=== PATIENT | female | born 1950 | race Caucasian/White ===

== ENCOUNTER → 2018-12-06 | Outpatient (CLI) | payer OTHER, MEDICAID ==
[2018-12-06] VITALS (8 sets, daily range): BP systolic 134–172; BP diastolic 75–95
[~2018-12-06] VITALS: Ht 165.1 cm; Wt 107.2 kg
[~2018-12-06] MED LIST: ALBUTEROL2.5 MG/0.5 INH; AMARYL2 MG PO; AMLODIPINE BESY10 MG PO; ATROVENT HFA14 GM INH; BEVESPI AEROS10.7 GM; GABAPENTIN 100100 MG PO; IBUPROFEN 200200 M1 PO; LASIX 40 MG TAB40 M2 PO; LISINOPRIL20 MG PO; NITROGLYCERIN0.4 MG SUBLING; NORCO 10-325 T1 EACH PO; OMEPRAZOLE20 M2 PO; OXYCODONE HCL 55 MG PO; ROSUVASTATIN CA10 MG PO; TOPROL XL25 MG PO
[2018-12-06 08:31] LABS: HEMATOCRIT 43.3 % (37.0-47.0); HEMOGLOBIN 14.8 gm/dL (12.0-15.0); MCHC 34.1 g/dL (28.0-37.0); MCV 90.9 fL (80.0-100.0); MPV 9.3 fl. (7.2-11.1); RBC 4.77 mil/uL (4.20-5.00); RDW-CV 13.4 % (10.5-14.5); WBC 9.8 thou/uL (4.0-11.0)
[2018-12-06 08:41] LABS: APTT 25.9 Seconds (25.0-31.3)
[2018-12-06 08:59] LABS: ANION GAP 7 mmol/L (7-16); BUN 10 mg/dL (7-18); CALCIUM 9.1 mg/dL (8.5-10.1); CHLORIDE 102 mmol/L (98-107); CO2 31 mmol/L (21-32); GLUCOSE 199 mg/dL (70-99); POTASSIUM 3.4 mmol/L (3.5-5.1); SODIUM 140 mmol/L (136-145)
[2018-12-06 09:06] LABS: ALBUMIN 3.3 g/dL (3.4-5.0); ALKALINE PHOSPHATASE 89 U/L (46-116); CHOLESTEROL 130 mg/dL (<200); HDL CHOLESTEROL 30 mg/dL (>40); LDL CHOLESTEROL 54 mg/dL (<100); SGOT 13 U/L (15-37); SGPT 23 U/L (30-65); TC:HDL 4.3 Ratio (Not establshd); TOTAL BILIRUBIN 0.3 mg/dL (<0.1-1.0); TOTAL PROTEIN 7.4 g/dL (6.4-8.2); TRIGLYCERIDE 230 mg/dL (<150); VLDL 46 mg/dL (<40)
[2018-12-06 09:07] LABS: SERUM ASSESSMENT Clear
--- NOTE | 2018-12-06 11:28 | CARD ---
[address] [address] CARDIAC CATH REPORT Name: SAMANTABREAKEYLA ROYAL Room: [facility] Loving#: [id number] Admission: 12/06/18 Attend Phys: Stefan Champagne MD, Discharge: Date of : 52 Report #: [id number] THIS REPORT FOR: //name// APPROVED REPORT Study performed: 12/06/2018 09:12:25 Patient Details Patient Status: Out-Patient Room #: Event Personnel Dr. Stefan Champagne Procedures Performed Left heart catheterization left ventriculography and selective coronary arteriography Indication Chest pain Risk Factors Hypercholesterolemia, Hypertension, Diabetes Procedure Narrative The patient was brought electively to the Cardiac Catheterization Laboratory and was prepped and draped in a sterile manner. The right femoral was infiltrated with 2% Lidocaine subcutaneous anesthesia. A 6 Filipino sheath was inserted into the right femoral artery. Coronary angiography was performed using coronary diagnostic catheters. The right coronary system was accessed and visualized with a Diagnostic catheter. The left coronary system was accessed and visualized with a Diagnostic catheter. The left ventricle was accessed and visualized with a Diagnostic catheter. Left ventricular/Aortic Valve gradient assessed via catheter pullback. Left ventriculogram was performed in PEREZ projection. Pre-demployment femoral angiogram was performed . Closure device was deployed with a 6 Fr Mynx. There was no hematoma. Coronary Angiography The patient's coronary anatomy is right dominant. Diagnostic Cath Left Main 0% narrowing LAD 0% narrowing Circumflex 0% narrowing with mild aneurysmal dilatation of the [facility] [address] [place] [address] CARDIAC CATH REPORT Name: BREA ENGLAND Room: [facility]#: [id number] Admission: 12/06/18 Attend Phys: Stefan Champagne MD, Discharge: Date of : 52 Report #: [id number] midportion of the circumflex Right Coronary Modest sized dominant vessel with 30% proximal narrowing Left Ventriculography The left ventricle is normal in size with normal contractility. The left ventricular ejection fraction is estimated to be 65%. Left ventricular wall motion abnormalities are not present. There is no mitral insufficiency. Hemodynamics The aortic pressure is 130/70 mmHg with a mean of 82 mmHg. The left ventricular end diastolic pressure is 8 mmHg. There was no gradient across the aortic valve upon pullback. 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 Recommendations Cardiac Risk Reduction Program Diagnostic Cath Approved by: Stefan Champagne MD Date/Time: 12/06/2018 11:27:40 <ELECTRONICALLY SIGNED> By: Stefan Champagne MD, [facility] 12/06/18 [id number] Champagne MD, [facility] /INF
--- NOTE | 2018-12-06 12:09 | EKG ---
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1950 Requested By: Stefan Champagne Order Number: [id number] Ma[place] MD: Stefan Champagne Measurements Intervals [place] Rate: 69 P: -77 ME: 106 QRS: 13 QRSD: 107 T: 45 QT: 427 QTc: 458 Interpretive Statements Ectopic atrial rhythm Short ME interval Abnormal R-wave progression, early transition Abnormal inferior Q waves Borderline T abnormalities, anterior leads No previous ECG available for comparison Electronically Signed On 12-06-2018 12:09:38 CDT by Stefan Champagne [email or web address] <ELECTRONICALLY SIGNED> By: Stefan Champagne MD, [facility] 12/06/18 1209 [id number] Stefan Champagne MD, [facility] /EPI
== END ==
LOC: M.CL 07:47 → M.TBA 10:46
PROVIDERS: Internal Medicine
DX: I25.10 Atherosclerotic heart disease of native coronary artery without angina pectoris (principal); I25.41 Coronary artery aneurysm; I10 Essential (primary) hypertension; I25.2 Old myocardial infarction; E11.9 Type 2 diabetes mellitus without complications; E78.00 Pure hypercholesterolemia, unspecified; E78.2 Mixed hyperlipidemia; F17.210 Nicotine dependence, cigarettes, uncomplicated; Z98.890 Other specified postprocedural states; Z79.899 Other long term (current) drug therapy; Z88.8 Allergy status to other drugs, medicaments and biological substances